=== PATIENT | female | born 1945 | race Caucasian/White ===

== ENCOUNTER 2017-10-04 11:00 | Emergency (ER) | payer MEDICARE, OTHER ==
[2015-06-11 08:16] VITALS: BMI 36.6
[~2017-10-04 11:00] MED LIST: ANTIVERT25 MG PO; ASPIRIN EC81 M1 PO; ASPIRIN325 MG PO; FERROUS SULFAT325 MG PO; GLIMEPIRIDE1 MG PO; GLUCOPHAGE500 MG PO; HYDRALAZINE20 MG/ML IV; HYZAAR 100-25 T1 TAB PO; K-DUR20 MEQ PO; ONDANSETRON4 MG/2 M3 IV; PRILOSEC20 MG PO; TRIGLIDE160 MG PO; ZANTAC300 MG PO
== END 2017-10-04 13:22 | disposition home or self-care (01) ==
LOC: D.ER 11:00
DX: S09.90XA Unspecified injury of head, initial encounter (principal); W19.XXXA Unspecified fall, initial encounter; Y93.89 Activity, other specified; Y92.73 Farm field as the place of occurrence of the external cause; Y99.0 Civilian activity done for income or pay; S16.1XXA Strain of muscle, fascia and tendon at neck level, initial encounter; S01.01XA Laceration without foreign body of scalp, initial encounter; K21.9 Gastro-esophageal reflux disease without esophagitis; E11.9 Type 2 diabetes mellitus without complications; I10 Essential (primary) hypertension; Z86.73 Personal history of transient ischemic attack (TIA), and cerebral infarction without residual deficits

== ENCOUNTER 2018-09-14 12:41 | Emergency (ER) | payer MEDICARE, OTHER ==
[~2018-09-14] VITALS: Ht 157.5 cm; Wt 90.0 kg
[2018-09-14 13:19] VITALS: Ht 157.5 cm; Wt 90.0 kg
[2018-09-14] MEDS ORDERED: TORADOL10 MG PO (18:57)
[2018-09-14 19:46] VITALS: BP 169/73
== END 2018-09-14 19:40 | disposition home or self-care (01) ==
LOC: D.ER 12:41
DX: S52.502A Unspecified fracture of the lower end of left radius, initial encounter for closed fracture (principal); W18.30XA Fall on same level, unspecified, initial encounter; Y93.89 Activity, other specified; Y92.019 Unspecified place in single-family (private) house as the place of occurrence of the external cause; S50.02XA Contusion of left elbow, initial encounter; E11.9 Type 2 diabetes mellitus without complications; I10 Essential (primary) hypertension; Z86.73 Personal history of transient ischemic attack (TIA), and cerebral infarction without residual deficits